=== PATIENT | male | born 1950 | race Caucasian/White ===

== ENCOUNTER 2018-12-03 15:46 | Inpatient (IN) | payer MEDICARE ==
[~2018-12-03] VITALS: Ht 190.5 cm; Wt 109.0 kg
[~2018-12-03 15:46] MED LIST: ALLO100 PO; AMIO200 PO; AMOX875 PO; BUPR75 PO; COLC.6 PO; DIGO.125 PO; DOCU100 PO; FISH1000 PO; FURO20 PO; HYDHCL10EL PO; HYDR1TAB94 PO; LEVSOD50 PO; LISI5 PO; METO50 PO; METO50ER PO; OMEG1CAP30 PO; OXYC5 PO; SILD50TA PO; SODPHOSO PR; TRAZ50 PO; VENL150ER PO; XARELTO20 MG PO
[2018-12-03 16:26] LABS: BASOPHILS ABSOLUTE AUTO 0.06 K/mm3 (0.00-0.23); BASOPHILS PERCENT AUTO 0 % (0-2); EOSINOPHILS ABSOLUTE AUTO 0.03 K/mm3 (0.00-0.68); EOSINOPHILS PERCENT AUTO 0 % (0-6); Hematocrit 40.7 % (37.0-53.0); Hemoglobin 13.4 g/dL (13.5-17.5); IMMATURE GRAN ABSOLUTE AUTO 0.07 K/mm3 (0.00-0.10); IMMATURE GRAN PERCENT AUTO 0 % (0-1); LYMPHOCYTES ABSOLUTE AUTO 1.91 K/mm3 (0.84-5.20); LYMPHOCYTES PERCENT AUTO 11 % (21-46); MONOCYTES ABSOLUTE AUTO 2.95 K/mm3 (0.16-1.47); MONOCYTES PERCENT AUTO 17 % (4-13); Mean Corpuscular HGB 29.7 pg (26.0-34.0); Mean Corpuscular HGB Conc 32.9 g/dL (31.5-36.5); Mean Corpuscular Volume 90 fL (80-100); NEUTROPHILS ABSOLUTE AUTO 12.54 K/mm3 (1.96-9.15); NEUTROPHILS PERCENT AUTO 71 % (41-73); Platelet Count 142 K/mm3 (150-400); RDW Coefficient Variation 14.1 % (11.7-14.2); RDW Standard Deviation 46.3 fL (35.1-46.3); Red Blood Cell Count 4.51 M/mm3 (4.30-5.90); White Blood Cell Count 17.56 K/mm3 (4.00-11.30)
[2018-12-03 16:48] LABS: Albumin, Blood 3.4 g/dL (3.4-5.0); Albumin/Globulin Ratio 0.9 (0.8-1.8); Bilirubin, Total 0.9 mg/dL (0.1-1.0); Bun/Creatinine Ratio 10.7 (12.0-20.0); Calcium, Blood 8.6 mg/dL (8.5-10.1); Creatinine, Blood 1.59 mg/dL (0.60-1.20); Globulin, Blood 3.7 g/dL (2.2-4.0); Total Protein, Blood 7.1 g/dL (6.4-8.2)
[2018-12-04 04:49] LABS: BASOPHILS ABSOLUTE AUTO 0.06 K/mm3 (0.00-0.23); BASOPHILS PERCENT AUTO 0 % (0-2); EOSINOPHILS PERCENT AUTO 1 % (0-6); Hemoglobin 11.8 g/dL (13.5-17.5); IMMATURE GRAN ABSOLUTE AUTO 0.07 K/mm3 (0.00-0.10); IMMATURE GRAN PERCENT AUTO 1 % (0-1); LYMPHOCYTES ABSOLUTE AUTO 1.64 K/mm3 (0.84-5.20); LYMPHOCYTES PERCENT AUTO 12 % (21-46); MONOCYTES PERCENT AUTO 16 % (4-13); Mean Corpuscular HGB 29.4 pg (26.0-34.0); Mean Corpuscular HGB Conc 32.8 g/dL (31.5-36.5); Mean Corpuscular Volume 90 fL (80-100); Mean Platelet Volume 10.2 fL (9.1-12.4); NEUTROPHILS ABSOLUTE AUTO 9.57 K/mm3 (1.96-9.15); NEUTROPHILS PERCENT AUTO 70 % (41-73); Platelet Count 144 K/mm3 (150-400); RDW Standard Deviation 45.7 fL (35.1-46.3); Red Blood Cell Count 4.01 M/mm3 (4.30-5.90); White Blood Cell Count 13.64 K/mm3 (4.00-11.30)
--- NOTE | 2018-12-04 04:59 | NUR ---
SHIFT SUMMARY: PT RESTED COMFORTABLY ALL EVENING AFTER INITIALLY C/O LLQ ABD PAIN RATED 8/10. PT INITIALLY RECEIVED DILAUDID 1MG IVP WHICH LOWER BP TO 91/57. PTS DOSAGE FOR DILAUDID WAS 0.5MG GIVEN SECOND TIME WITH BP 111/54. PT HAPPY AND COOPERATIVE. PT VOICED THAT HE QUIT ETOH IN 2009 AND NOW SUBSTITUES BOOZE WITH DRINKING 1-2 LITERS OF DIET [place] A DAY WITH THIS NURSE ENCOURAGING HIM TO CUT DOWN ON INTAKE WITH ACKNOWLEDGEMENT NOTED. PTS BED LOW POSITION, CALL LIGHT AT SIDE.
[2018-12-04 05:12] LABS: Magnesium, Blood 2.2 mg/dL (1.6-2.4)
[2018-12-04 05:15] LABS: Albumin, Blood 2.9 g/dL (3.4-5.0); Albumin/Globulin Ratio 0.9 (0.8-1.8); Bilirubin, Total 0.7 mg/dL (0.1-1.0); Bun/Creatinine Ratio 10.6 (12.0-20.0); Calcium, Blood 8.3 mg/dL (8.5-10.1); Creatinine, Blood 1.41 mg/dL (0.60-1.20); Globulin, Blood 3.3 g/dL (2.2-4.0); Potassium, Blood 4.1 mmol/L (3.5-5.5); Total Protein, Blood 6.2 g/dL (6.4-8.2)
--- NOTE | 2018-12-04 18:00 | NUR ---
PATIENT CONTINUES TO HAVE EPISODES OF ACUTE PAIN DUE TO DIVERTICULITIS. DILAUDID GIVEN PER EMAR. PATIENT IS STILL ONLY TOLERATING CLEAR LIQUIDS. NO OTHER COMPLAINTS. PATIENT IS ALERT AND ORIENTED AND COMPLIANT WITH STAFF.
--- NOTE | 2018-12-05 04:46 | NUR ---
SHIFT SUMMARY: 68 Y/O MALE SLEPT FOR 2-3 HOUR PERIODS THROUGHOUT SHIFT. PT C/O LLQ ABD DISCOMFORT (TENDER TO TOUCH) RATED 7/10 WITH DILAUDID 0.5MG IVP GIVEN WITH RELIEF FELT. PT DENIES NAUSEA. PT ABLE TO TRANSFER AND AMBULATE TO BATHROOM AND BACK WITH GAIT STEADY AND EVEN. PT REPOSITIONS SELF IN BED, TAKING CLEAR LIQUID DIET WELL ALL NIGHT. PTS BED LOW POSITION, CALL LIGHT AT SIDE.
[2018-12-05 05:03] LABS: BASOPHILS ABSOLUTE AUTO 0.05 K/mm3 (0.00-0.23); BASOPHILS PERCENT AUTO 1 % (0-2); EOSINOPHILS ABSOLUTE AUTO 0.11 K/mm3 (0.00-0.68); EOSINOPHILS PERCENT AUTO 1 % (0-6); Hematocrit 34.4 % (37.0-53.0); Hemoglobin 11.4 g/dL (13.5-17.5); IMMATURE GRAN ABSOLUTE AUTO 0.03 K/mm3 (0.00-0.10); IMMATURE GRAN PERCENT AUTO 0 % (0-1); LYMPHOCYTES ABSOLUTE AUTO 1.76 K/mm3 (0.84-5.20); LYMPHOCYTES PERCENT AUTO 19 % (21-46); MONOCYTES ABSOLUTE AUTO 1.56 K/mm3 (0.16-1.47); MONOCYTES PERCENT AUTO 17 % (4-13); Mean Corpuscular HGB 29.8 pg (26.0-34.0); Mean Corpuscular HGB Conc 33.1 g/dL (31.5-36.5); Mean Corpuscular Volume 90 fL (80-100); Mean Platelet Volume 10.1 fL (9.1-12.4); NEUTROPHILS ABSOLUTE AUTO 5.72 K/mm3 (1.96-9.15); NEUTROPHILS PERCENT AUTO 62 % (41-73); Platelet Count 153 K/mm3 (150-400); RDW Coefficient Variation 13.9 % (11.7-14.2); RDW Standard Deviation 45.1 fL (35.1-46.3); Red Blood Cell Count 3.82 M/mm3 (4.30-5.90); White Blood Cell Count 9.23 K/mm3 (4.00-11.30)
[2018-12-05 05:28] LABS: Albumin, Blood 2.8 g/dL (3.4-5.0); Albumin/Globulin Ratio 0.9 (0.8-1.8); Bilirubin, Total 0.4 mg/dL (0.1-1.0); Bun/Creatinine Ratio 7.6 (12.0-20.0); Calcium, Blood 8.2 mg/dL (8.5-10.1); Creatinine, Blood 1.32 mg/dL (0.60-1.20); Globulin, Blood 3.2 g/dL (2.2-4.0); Potassium, Blood 3.8 mmol/L (3.5-5.5)
[2018-12-05] MEDS ORDERED: ACET325 PO (11:56)
[2018-12-05] MEDS ORDERED: LACT PO ×2 (11:57→12:06)
[2018-12-05] MEDS ORDERED: CEFP200 PO (11:57)
[2018-12-05] MEDS ORDERED: METR500 PO ×2 (11:58→12:07)
[2018-12-05] MEDS ORDERED: ONDA4ODT MM ×2 (12:00→12:08)
[2018-12-05] MEDS ORDERED: FAMO20 PO (12:09)
--- NOTE | 2018-12-05 14:41 | NUR ---
PATIENT TO DISCHARGE TO HOME. IV REMOVED, NO SS OF INFECTION NOTED. MEDS FAXED TO PHARMACY OF CHOICE. PATIENT EDUCATED REGARDING NEW MEDS. PATIENT INSTRUCTED TO FOLLOW UP WITH PCP. PATIENT TAKEN HOME BY FAMILY.
== END 2018-12-05 13:45 | disposition home or self-care (01) | DRG 392 ==
LOC: ER 15:46 → MEDS 16:45
PROVIDERS: Emergency Medicine; Family Medicine; ADMIT Internal Medicine
DX: K57.92 Diverticulitis of intestine, part unspecified, without perforation or abscess without bleeding (principal); I42.9 Cardiomyopathy, unspecified; I13.0 Hypertensive heart and chronic kidney disease with heart failure and stage 1 through stage 4 chronic kidney disease, or unspecified chronic kidney disease; N17.9 Acute kidney failure, unspecified; I25.10 Atherosclerotic heart disease of native coronary artery without angina pectoris; I48.2 Chronic atrial fibrillation; I50.9 Heart failure, unspecified; N18.3 Chronic kidney disease, stage 3 (moderate); E03.9 Hypothyroidism, unspecified; Z95.0 Presence of cardiac pacemaker; Z79.01 Long term (current) use of anticoagulants
CPT/HCPCS: 36415; 80053; 83605; 83735; 85025; 96361; 96365; 96375; 99285-25; C9113; J0696; J1170; J2405; J7030; J7120